=== PATIENT | male | born 1965 | race Caucasian/White ===

== ENCOUNTER 2018-05-29 23:15 | Emergency (ER) | payer BC ==
[2018-05-29] MEDS ORDERED: NORMAL SALINE 1000 ML 1,000 ML IV ONE (23:46)
[2018-05-29] MEDS ORDERED: ONDANSETRON HCL INJ/PF 4 MG/2 ML SDV IV ONE (23:46)
[2018-05-29] MEDS ORDERED: KETOROLAC TROMETHAMINE INJ/PF 30 MG/1 ML SDV IV ONE (23:46)
--- NOTE | 2018-05-29 23:49 | ER Document Report ---
ED General - General Chief Complaint: Flank Pain Stated Complaint: ABDOMINAL PAIN Time Seen by Provider: 05/29/18 23:41 Notes: Patient is a pleasant 53-year-old male who presents with complaint of severe left-sided flank pain onset tonight. He never had this type of pain before. No history of kidney stones. The only medications he takes are atorvastatin for cholesterol. He is otherwise healthy. Denies any fevers. Some nausea. Has not noticed any blood in his urine. Denies any trauma or injuries to his back or side. TRAVEL OUTSIDE OF THE [place] IN LAST 30 DAYS: No Past Medical History - Social History Smoking Status: Never Smoker Frequency of alcohol use: None Drug Abuse: None Family History: Reviewed & Not Pertinent Review of Systems - Review of Systems Notes: My Normal Review Basic REVIEW OF SYSTEMS: CONSTITUTIONAL : Denies fever, chills, or sweats. Denies recent illness. CARDIOVASCULAR: Denies chest pain. RESPIRATORY: Denies cough, cold, or chest congestion. Denies shortness of breath, difficulty breathing, or wheezing. GASTROINTESTINAL: Right flank pain. GENITOURINARY: Denies difficulty urinating, painful urination, burning, frequency, or blood in urine. MUSCULOSKELETAL: Back pain SKIN: Denies rash or skin lesions. NEUROLOGICAL: Denies altered mental status or loss of consciousness. ALL OTHER SYSTEMS REVIEWED AND NEGATIVE. Physical Exam - Vital signs Vitals: Temp Pulse Resp BP Pulse Ox 97.7 F 65 20 192/102 H 100 05/29/18 23:23 05/29/18 23:23 05/29/18 23:23 05/29/18 23:23 05/29/18 23:23 - Notes Notes: General Appearance: Well nourished, alert, cooperative, no acute distress, moderate obvious discomfort. Vitals: reviewed, See vital signs table. Head: no swelling or tenderness to the head Eyes: PERRL, EOMI, Conjuctiva clear Mouth: No decreasd moisture Lungs: No wheezing, No rales, No rhonci, No accessory muscle use, good air exchange bilaterally. Heart: Normal rate, Regular rythm, No murmur, no rub Abdomen: Normal BS, soft, No rigidity, No reproducible abdominal or flank tenderness to palpation, No guarding, no rebound, Back: No tenderness palpation of the spine or paraspinal musculature. Extremities: strength 5/5 in all extremities, good pulses in all extremities, no swelling or tenderness in the extremities, no edema. Skin: warm, dry, appropriate color, no rash Neuro: speech clear, oriented x 3, normal affect, responds appropriately to questions. Course - Re-evaluation Re-evalutation: 05/30/18 06:21 She is spending as much improved with repeat dose of Toradol. He had no further nausea or vomiting. CT scan shows the 3 mm kidney stone on the left side. I talked to he patient at length about this and informed him that most likely will pass this on his own medication people still cannot pass even a smaller stones and therefore he should call urology for close follow-up in 3 days if he still having pain and has not passed the stone. I informed him to return to ER immediately if he has intractable pain, vomiting, fevers, or if he feels unwell. Patient agrees with plan will be discharged home. Dictation of this chart was performed using voice recognition software; therefore, there may be some unintended grammatical errors. - Vital Signs Vital signs: Temp Pulse Resp BP Pulse Ox 98.0 F 65 12 159/97 H 98 05/30/18 04:00 05/29/18 23:23 05/30/18 04:00 05/30/18 03:01 05/30/18 04:00 - Laboratory Result Diagrams: 05/30/18 00:05 05/30/18 00:05 Laboratory results interpreted by me: 05/30/18 05/30/18 05/30/18 00:05 00:05 01:39 Hgb 13.3 L Seg Neutrophils % 81.4 H Lymphocytes % 12.3 L Glucose 138 H Urine Protein 30 H Urine Blood LARGE H Discharge - Discharge Clinical Impression: Kidney stone on left side Condition: Good Disposition: HOME, SELF-CARE Additional Instructions: KIDNEY STONE: You are passing or have passed a kidney stone. These stones are usually due to increased calcium or uric acid concentrations in your urine. Stones within the kidney itself are not painful. The pain occurs as the stone leaves the kidney to pass down the long tube, called the ureter, leading to the bladder. If the stone is small, it will usually pass by itself. Most patients can pass the stone at home. You will usually receive medications for pain, nausea or vomiting, and sometimes a medication to assist in passing the kidney stone. However, if the pain is very severe or if vomiting prevents you from taking oral pain medications, you may need to return for further treatment. Drink three or four quarts of fluids per day. You will be given pain medication (if needed) and urine strainers. Strain all your urine to see if the stone passes. If your doctor has asked you to bring the stone in for analysis, return with the stone once it has passed. Return if pain or vomiting become severe, if you develop a high fever, if you are unable to pass your urine, or if other unusual symptoms occur. TORADOL INJECTION: You have been given an injection of ketorolac tromethamine (Toradol). This is an excellent, safe drug for pain control. It also has potent antiinflammatory action. You should have significant pain relief within about one hour. Toradol is not addicting and is non-sedating. It does not interfere with driving or work. Call or return if you develop itching, hives, shortness of breath, or rash. ANTINAUSEA MEDICATION: You have been given a medication to suppress nausea and vomiting. This type of medication can be given as a shot, pill, or suppository. It will usually last for many hours. Pills and shots usually last six to eight hours, suppositories last about 12 hours. For the typical illness, only one or two doses of the medication may be necessary. Mild lightheadedness may occur. This type of medicine can cause drowsiness. Do not drive or operate dangerous machinery while under its influence. Do not mix with alcohol. See your doctor at once if you have muscle spasms or tightness, or uncontrollable motions (particularly of the neck, mouth, or jaw). Persistent vomiting or severe lightheadedness should also be evaluated by the physician. ORAL NARCOTIC MEDICATION: You have been given a prescription for pain control. This medication is a narcotic. It's best taken with food, as nausea can result if taken on an empty stomach. Don't operate machinery or drive within six hours of taking this medication. Do not combine this medicine with alcohol, or with any medication which can cause sedation (such as cold tablets or sleeping pills) unless you get permission from the physician. Narcotics tend to cause constipation. If possible, drink plenty of fluids and eat a diet high in fiber and fruits. Please be aware that prescription narcotics also have the potential for abuse. People become addicted to these medications because of the general sense of wellbeing that they induce. This feeling along with a significant reduction in tension, anxiety, and aggression provides a stimulating seductive quality to these drugs. Once your pain is under control, we encourage you to discard your unused narcotics. FLOMAX (tamsulosin): Flomax is a medicine that shrinks the prostate gland. It helps relieve symptoms of benign prostatic hypertrophy, such as frequent urination, weak stream, and inadequate emptying. It has been shown to dilate the ureter (tube leading from the kidney to the bladder) and help in passing kidney stones Flomax usually causes no side effects. You may notice slight tiredness and dizziness for a few days. Some patients develop nasal congestion. Rarely, impotence can occur. If the symptoms are bothersome and don't improve with continued use, call your doctor. Contact your doctor or return if you have fainting spells, severe weakness or dizziness, shortness of breath, or rash. FOLLOW-UP CARE: If you have been referred to a physician for follow-up care, call the physician s office for an appointment as you were instructed or within the next two days. If you experience worsening or a significant change in your symptoms, notify the physician immediately or return to the Emergency Department at any time for re-evaluation. Please follow up the urologist, Dr. Vidal, if you have not passed the kidney stone and are still having pain after 2-3 days. Do not take other NSAID medications such as Aspirin, Motrin, Ibuprofen, Aleve, or Advil when taking this medication. It is okay to take Tylenol. Please return to the ER if you are having intractable pain, recurrent vomiting, fevers, or feel unwell. Prescriptions: Ketorolac Tromethamine [Toradol 10 mg Tablet] 10 mg PO Q6HP PRN #12 tablet PRN Reason: Ondansetron [Zofran Odt 4 mg Tablet] 1 tab PO Q4H PRN #15 tab.rapdis PRN Reason: For Nausea/Vomiting Tamsulosin HCl [Flomax 0.4 mg Cap.sr] 0.4 mg PO DAILY #7 cap.sr.24h Forms: Return to Work Referrals: DHARMESH ALMANZAR MD [Primary Care Provider] - Follow up as needed VIDAL,LOBITO, MD [NO LOCAL MD] - Follow up in 3-5 days
[2018-05-30] MEDS ORDERED: HYDROMORPHONE HCL INJ/PF 2 MG/ML AMPULE IV ONE ×2 (00:41→02:19)
[2018-05-30 00:44] LABS: ABSOLUTE EOSINOPHILS # (AUTO) 0.1 10^3/uL (0.0-0.6); ABSOLUTE LYMPHOCYTES (AUTO) 1.1 10^3/uL (0.5-4.7); ABSOLUTE MONOCYTES (AUTO) 0.5 10^3/uL (0.1-1.4); ABSOLUTE NEUT (AUTO) 7.3 10^3/uL (1.7-8.2); BASOPHILS % (AUTO) 0.4 % (0-2); EOSINOPHILS % (AUTO) 0.6 % (0-6); HEMATOCRIT 39.6 % (37.9-51.0); HEMOGLOBIN 13.3 g/dL (13.5-17.0); LYMPHOCYTES % (AUTO) 12.3 % (13-45); MEAN CORPUSCULAR HEMOGLOBIN 27.9 pg (27.0-33.4); MEAN CORPUSCULAR HGB CONC 33.5 g/dL (32.0-36.0); MEAN CORPUSCULAR VOLUME 84 fl (80-97); MONOCYTES % (AUTO) 5.3 % (3-13); PLATELET COUNT 157 10^3/uL (150-450); RED BLOOD COUNT 4.75 10^6/uL (4.35-5.55); RED CELL DISTRIBUTION WIDTH 13.4 % (11.5-14.0); SEGMENTED NEUTROPHILS % (AUTO) 81.4 % (42-78); TOTAL CELLS COUNTED % (AUTO) 100 %; WHITE BLOOD COUNT 8.9 10^3/uL (4.0-10.5)
--- NOTE | 2018-05-30 00:47 | RADIOLOGY REPORT (SQ) ---
EXAM DESCRIPTION: CT ABDOMEN WITHOUT IV CONTRAST COMPLETED DATE/TME: 05/29/2018 23:45 CLINICAL HISTORY: 53 years Male, left flank pain Comparison: None. Technique: No contrast. Coronal and sagittal reformat. This exam was performed according to our departmental dose-optimization program, which includes automated exposure control, adjustment of the mA and/or kV according to patient size and/or use of iterative reconstruction technique.[facility]: Dose Right [facility]: CareDose [facility]: Dose Right [facility]: Teradose 4D [facility]: Enerkem LIMITATIONS: None Findings: 0.3 cm left distal ureteral stone at the level of the acetabula with moderate left hydronephrosis-hydroureter and mild left perinephric fat stranding. Punctate bilateral nephrolithiasis. Calcified granulomata of the right hilum, small cholelithiasis, small bilateral inguinal fat only hernia. Normal appendix. Unenhanced lower thorax, abdominopelvic structures, and musculoskeleton appear otherwise grossly unremarkable. Impression: 1. A 0.3-cm left distal ureteral stone with low-grade obstruction. Punctate bilateral nephrolithiasis. 2. Cholelithiasis.
[2018-05-30 01:03] LABS: ANION GAP 16 (5-19); BLOOD UREA NITROGEN 13 mg/dL (7-20); CALCIUM 9.7 mg/dL (8.4-10.2); CARBON DIOXIDE 26 mmol/L (22-30); CHLORIDE 102 mmol/L (98-107); GLUCOSE 138 mg/dL (75-110); POTASSIUM 4.1 mmol/L (3.6-5.0); SODIUM 143.9 mmol/L (137-145)
[2018-05-30 02:51] LABS: APPEARANCE,URINE CLOUDY; BILIRUBIN,URINE NEGATIVE (NEGATIVE); COLOR,URINE YELLOW; GLUCOSE, URINE NEGATIVE (NEGATIVE); KETONES,URINE NEGATIVE (NEGATIVE); LEUKOCYTE ESTERASE,URINE NEGATIVE (NEGATIVE); NITRITE,URINE NEGATIVE (NEGATIVE); PROTEIN,URINE 30 mg/dL (NEGATIVE); UROBILINOGEN,URINE NEGATIVE mg/dL (<2.0)
[2018-05-30] MEDS ORDERED: KETOROLAC TROMETHAMINE INJ/PF 30 MG/1 ML SDV IV ONE (02:57)
[2018-05-30] MEDS ORDERED: ONDANSETRON ODT 4 MG TAB (6 TAB/ER DISP) PO PRN (03:56)
[2018-05-30] MEDS ORDERED: HYDROCODONE/ACETAMINOPHEN 5-325 MG (6 TAB/ER DISP) PO PRN (03:56)
[2018-05-30 04:17] VITALS: BP 159/97
== END 2018-05-30 04:17 | disposition home or self-care (01) ==
LOC: ER 23:15
DX: N13.2 Hydronephrosis with renal and ureteral calculous obstruction (principal); Z79.899 Other long term (current) drug therapy
CPT/HCPCS: 96376; 99284; 96361; 96374; 96375; 36415; 85025; 80048; 81001; 76380; J1885; J1170; J2405; J7030

== ENCOUNTER → 2018-06-13 | Outpatient (CLI) | payer BC ==
[2018-06-20 12:38] LABS: CALCIUM OXALATE MONOHYDRATE 95 % (.); COLOR Brown (.); SIZE 3x3x2 mm (.)
== END ==
LOC: OD 16:11
PROVIDERS: ATTEND Nurse Practitioner Primary Care
DX: N20.0 Calculus of kidney (principal)
CPT/HCPCS: 82370

== ENCOUNTER → 2018-11-06 | Outpatient (CLI) | payer BC ==
[2018-11-06 10:20] LABS: HEMATOCRIT 39.1 % (37.9-51.0); HEMOGLOBIN 13.1 g/dL (13.5-17.0); MEAN CORPUSCULAR HEMOGLOBIN 27.9 pg (27.0-33.4); MEAN CORPUSCULAR HGB CONC 33.4 g/dL (32.0-36.0); MEAN CORPUSCULAR VOLUME 84 fl (80-97); PLATELET COUNT 155 10^3/uL (150-450); RED BLOOD COUNT 4.68 10^6/uL (4.35-5.55); RED CELL DISTRIBUTION WIDTH 13.2 % (11.5-14.0); WHITE BLOOD COUNT 5.7 10^3/uL (4.0-10.5)
== END ==
LOC: OD 09:21
PROVIDERS: ATTEND Obstetrics & Gynecology
DX: D61.818 Other pancytopenia (principal)
CPT/HCPCS: 36415; 85027; 88184; 88185

== ENCOUNTER 2019-11-09 20:41 | Emergency (ER) | payer BC ==
[2019-11-09 22:56] LABS: ABSOLUTE BASOPHILS # (AUTO) 0.1 10^3/uL (0.0-0.2); ABSOLUTE EOSINOPHILS # (AUTO) 0.1 10^3/uL (0.0-0.6); ABSOLUTE LYMPHOCYTES (AUTO) 2.6 10^3/uL (0.5-4.7); ABSOLUTE MONOCYTES (AUTO) 0.5 10^3/uL (0.1-1.4); ABSOLUTE NEUT (AUTO) 3.8 10^3/uL (1.7-8.2); BASOPHILS % (AUTO) 0.8 % (0-2); EOSINOPHILS % (AUTO) 2.1 % (0-6); HEMATOCRIT 39.1 % (37.9-51.0); HEMOGLOBIN 13.4 g/dL (13.5-17.0); LYMPHOCYTES % (AUTO) 36.9 % (13-45); MEAN CORPUSCULAR HEMOGLOBIN 28.7 pg (27.0-33.4); MEAN CORPUSCULAR HGB CONC 34.2 g/dL (32.0-36.0); MEAN CORPUSCULAR VOLUME 84 fl (80-97); MONOCYTES % (AUTO) 6.9 % (3-13); PLATELET COUNT 168 10^3/uL (150-450); RED BLOOD COUNT 4.65 10^6/uL (4.35-5.55); RED CELL DISTRIBUTION WIDTH 13.7 % (11.5-14.0); SEGMENTED NEUTROPHILS % (AUTO) 53.3 % (42-78); TOTAL CELLS COUNTED % (AUTO) 100 %; WHITE BLOOD COUNT 7.1 10^3/uL (4.0-10.5)
[2019-11-09 23:15] LABS: ALBUMIN 4.6 g/dL (3.5-5.0); ALKALINE PHOSPHATASE 60 U/L (38-126); ANION GAP 10 (5-19); ASPARTATE AMINO TRANSFERASE 26 U/L (17-59); BILIRUBIN,DIRECT 0.2 mg/dL (0.0-0.4); BILIRUBIN,TOTAL 0.3 mg/dL (0.2-1.3); BLOOD UREA NITROGEN 20 mg/dL (7-20); CALCIUM 9.6 mg/dL (8.4-10.2); CARBON DIOXIDE 31 mmol/L (22-30); CHLORIDE 97 mmol/L (98-107); CREATINE KINASE 121 U/L (55-170); GLUCOSE 95 mg/dL (75-110); POTASSIUM 3.6 mmol/L (3.6-5.0); TOTAL PROTEIN 7.5 g/dL (6.3-8.2)
[2019-11-09 23:27] LABS: CREATINE KINASE MB 2.05 ng/mL (<4.55)
[2019-11-09 23:29] LABS: TROPONIN I < 0.012 ng/mL
--- NOTE | 2019-11-10 01:26 | ER Document Report ---
ED General - General Chief Complaint: Jaw Pain Stated Complaint: JAW PAIN Time Seen by Provider: 11/10/19 00:59 Primary Care Provider: JULIAN DOCKERY MD [ACTIVE STAFF] - Follow up as needed Notes: Patient is a 54-year-old male that comes to the emergency department for chief complaint of episodes of been going on for months now, however he states that over the past 2 days he has noticed more frequently that he will feel lightheaded, will feel heart palpitations, he will feel weak at times, he also states earlier he had some random pains in his right jaw and in his right arm but this resolved. He denies having chest pain, he denies shortness of breath, he denies passing out. He denies fever, vomiting, abdominal pain. He does not smoke, denies recreational drugs or alcohol. He does drink frequent caffeine. Past medical history of hyperlipidemia, type 2 diabetes, and he takes lisinopril 5 mg without diagnosis of hypertension. He also is a history of kidney stones and was feeling pain in his left flank near the kidney area earlier today. TRAVEL OUTSIDE OF THE [place] IN LAST 30 DAYS: No - Related Data Allergies/Adverse Reactions: No Known Allergies Allergy (Verified 11/09/19 22:29) Past Medical History - General Information source: Patient - Social History Smoking Status: Never Smoker Frequency of alcohol use: Rare Lives with: Family Family History: Reviewed & Not Pertinent Patient has suicidal ideation: No Patient has homicidal ideation: No - Past Medical History Cardiac Medical History: Reports: Hx Hypercholesterolemia Endocrine Medical History: Reports: Hx Diabetes Mellitus Type 2 Renal/ Medical History: Denies: Hx Peritoneal Dialysis Surgical Hx: Negative - Immunizations Immunizations up to date: Yes Hx Diphtheria, Pertussis, Tetanus Vaccination: Yes Review of Systems - Review of Systems Constitutional: See HPI EENT: No symptoms reported Cardiovascular: See HPI Respiratory: No symptoms reported Gastrointestinal: No symptoms reported Genitourinary: No symptoms reported Male Genitourinary: No symptoms reported Musculoskeletal: No symptoms reported Skin: No symptoms reported Hematologic/Lymphatic: No symptoms reported Neurological/Psychological: No symptoms reported Physical Exam - Vital signs Vitals: Temp Pulse Resp BP Pulse Ox 97.9 F 97 14 112/73 98 11/09/19 20:54 11/09/19 20:54 11/09/19 20:54 11/09/19 20:54 11/09/19 20:54 - Notes Notes: GENERAL: Alert, interacts well. No acute distress. HEAD: Normocephalic, atraumatic. EYES: Pupils equal, round, and reactive to light. Extraocular movements intact. ENT: Oral mucosa moist, tongue midline. Oropharynx unremarkable. Airway patent. LUNGS: Clear to auscultation bilaterally, no wheezes, rales, or rhonchi. No respiratory distress. HEART: Regular rate with occasional extrasystoles. Normal rhythm otherwise. No murmur. ABDOMEN: Soft, non-tender. Non-distended. EXTREMITIES: Moves all 4 extremities spontaneously. No edema, normal radial and dorsalis pedis pulses bilaterally. No cyanosis. BACK: no cervical, thoracic, lumbar midline tenderness. No saddle anesthesia, normal distal neurovascular exam. Moves all extremities in full range of motion. NEUROLOGICAL: Alert and oriented x3. Normal speech. Cranial nerves II through XII grossly intact. PSYCH: Normal affect, normal mood. SKIN: Warm, dry, normal turgor. No rashes or lesions noted. Course - Re-evaluation Re-evalutation: Patient with some PVCs on the monitor but no concerning findings otherwise. He does have a PVC on EKG. QTc unremarkable. No ischemic changes. 2 troponins negative. Chemistry and CBC unremarkable, chest x-ray clear, patient without any symptoms on my evaluation. TSH is slightly abnormal with unremarkable T4. Appears to be a borderline component of hypothyroidism. Patient also drinks too much caffeine, based on his evaluation I suspect he also has sleep apnea based on body habitus and description. I discussed how all these components can factor in. I do have a low suspicion of life-threatening arrhythmia, ACS, and I discussed all details with patient at length. I discussed follow-up instructions, return precautions with patient. He states appreciation and agreement. Stable at time of discharge. - Vital Signs Vital signs: Temp Pulse Resp BP Pulse Ox 98.8 F 97 23 H 111/77 97 11/10/19 03:09 11/09/19 20:54 11/10/19 03:09 11/10/19 03:09 11/10/19 03:09 - Laboratory Result Diagrams: 11/09/19 22:45 11/09/19 22:45 Laboratory results interpreted by me: 01/10/20 01/10/20 01/10/20 22:45 22:45 22:45 Hgb 13.4 L Chloride 97 L Carbon Dioxide 31 H TSH 7.21 H - EKG Interpretation by Me Additional EKG results interpreted by me: EKG shows sinus rhythm at a rate of 88, left ventricular hypertrophy, PVC, borderline right bundle branch block. No T wave inversions or ST segment changes in consecutive leads. Discharge - Discharge Clinical Impression: Heart palpitations, Weakness, Dizziness Condition: Stable Disposition: HOME, SELF-CARE Additional Instructions: Your heart evaluation is reassuring although you do have multiple PVCs at times. These are most likely the cause of the sensation of palpitations that you are feeling. There is no concerning amount noted on your evaluation tonight. I do recommend that you reduce your caffeine intake and follow-up with the cardiology referral listed for additional management. Your thyroid screening function test is slightly abnormal indicating mild hypothyroidism. Please follow-up with primary care for additional management of this. Consider polysomnography (sleep test) because of your symptoms as well, this can also contribute to palpitations throughout the day. Return if you worsen including chest pain, passing out, or any other concerning or worsening symptoms. Referrals: JULIAN DOCKERY MD [ACTIVE STAFF] - Follow up as needed
--- NOTE | 2019-11-10 01:59 | RADIOLOGY REPORT (SQ) ---
EXAM DESCRIPTION: X-ray single view chest. CLINICAL HISTORY: 54 years Male, jaw pain, right arm pain, dizziness COMPARISON: None. TECHNIQUE: Single portable x-ray view of the chest performed on 11/10/2019 at 1:44 AM FINDINGS: The lungs are well expanded and are clear. There is no evidence of a pneumothorax. The cardiac silhouette is normal in size and configuration. The mediastinal contours are normal. No acute osseous abnormality is identified. No focal soft tissue abnormalities are seen. Lines and tubes: None. IMPRESSION: No evidence of acute intrathoracic disease.
[2019-11-10 02:00] LABS: FREE T4 (FREE THYROXINE) 1.05 ng/dL (0.78-2.19)
[2019-11-10 02:15] LABS: THYROID STIMULATING HORMONE 7.21 uIU/mL (0.47-4.68)
[2019-11-10 03:18] VITALS: BP 111/77
--- NOTE | 2019-11-11 20:48 | EKG REPORT ---
SEVERITY:- ABNORMAL ECG - SINUS RHYTHM VENTRICULAR PREMATURE COMPLEX INCOMPLETE RIGHT BUNDLE BRANCH BLOCK LEFT VENTRICULAR HYPERTROPHY : Confirmed by: Sally Brennan 11-Nov-2019 20:47:23
== END 2019-11-10 03:18 | disposition home or self-care (01) ==
LOC: ER 20:41
DX: R42 Dizziness and giddiness (principal); I49.3 Ventricular premature depolarization; R00.2 Palpitations; R53.1 Weakness; R79.89 Other specified abnormal findings of blood chemistry; I51.7 Cardiomegaly; E11.9 Type 2 diabetes mellitus without complications; R10.9 Unspecified abdominal pain; Z87.442 Personal history of urinary calculi; Z79.899 Other long term (current) drug therapy
CPT/HCPCS: 36415; 71045; 80053; 82550; 82553; 83735; 84439; 84443; 84484; 85025; 93005; 93010; 99283